=== PATIENT | female | born 1995 | race Caucasian/White ===

== ENCOUNTER 2017-07-16 07:39 | Emergency (ER) | payer OTHER ==
[~2017-07-16] VITALS: Ht 167.6 cm; Wt 63.0 kg
[2017-07-16 08:26] VITALS: BP 121/74
== END 2017-07-16 08:26 | disposition home or self-care (01) ==
LOC: ED 07:39
DX: J02.9 Acute pharyngitis, unspecified (principal); M79.1 Myalgia; H92.03 Otalgia, bilateral; R51 Headache
CPT/HCPCS: J1100; J1885

== ENCOUNTER 2018-04-29 11:19 | Inpatient (IN) | payer MEDICAID ==
[~2018-04-29] VITALS: Ht 160 cm; Wt 63.2 kg
[2018-04-29 11:26] VITALS: Ht 160 cm; Wt 63.2 kg
[2018-04-29 12:27] LABS: BASOPHIL % 0.5 % (0-2); PLATELET COUNT 201 x10^3mcL (130-400); RED CELL DISTRIBUTION WIDTH 13.3 % (11.5-14.5)
[2018-04-29 13:56] LABS: CALCIUM 8.6 mg/dL (8.5-10.1); CHLORIDE SERUM 105 mmol/L (98-107); CREATININE SERUM 0.6 mg/dL (0.6-1.0); GFR1 > 60 mL/min; GLUCOSE SERUM 87 mg/dL (74-106); POTASSIUM SERUM 3.9 mmol/L (3.5-5.1); SODIUM SERUM 136 mmol/L (136-145)
[2018-04-29 14:00] LABS: ALBUMIN 3.5 g/dL (3.4-5.0); ALKALINE PHOSPHATASE 93 U/L (46-116); ALT/SGPT 21 U/L (14-59); AMYLASE 54 U/L (25-115); AST/SGOT 18 U/L (15-37); BILIRUBIN TOTAL 0.5 mg/dL (0.20-1.00); LIPASE 148 IU/L (73-393); TOTAL PROTEIN, SERUM 7.2 g/dL (6.4-8.2)
[2018-04-29 17:12] LABS: T3 TOTAL 1.13 ng/mL
[2018-04-29 17:23] LABS: MAGNESIUM 2.2 mg/dL (1.8-2.4); PHOSPHOROUS 4.1 mg/dL (2.5-4.9)
[2018-04-29 17:26] LABS: CHOLESTEROL/HDL RATIO 2.9
[2018-04-29 17:27] VITALS: BP 125/65
[2018-04-29 17:45] LABS: FREE T4 1.01 ng/dL (0.76-1.46); FREE THYROXINE INDEX 2.1 ug/dL (1.4-4.5); T4(THYROXINE) 6.4 ug/dL (4.7-13.3)
[2018-04-29 20:37] VITALS: BP 119/65
== END 2018-04-29 23:03 | disposition left against medical advice (07) | DRG 532 ==
LOC: ED 11:19 → DU 16:30
PROVIDERS: Family Medicine; Specialist
DX: N83.202 Unspecified ovarian cyst, left side (principal); K68.9 Other disorders of retroperitoneum; R19.03 Right lower quadrant abdominal swelling, mass and lump
CPT/HCPCS: 83880; 84439; J7030